=== PATIENT | male | born 1990 | race Caucasian/White ===

== ENCOUNTER 2022-06-13 13:40 | Emergency (ER) | payer MEDICAID ==
[~2022-06-13] VITALS: Ht 160 cm; Wt 58.0 kg
[2022-06-13 13:47] VITALS: BP 122/86
[2022-06-13] MEDS ORDERED: DEXAMETHASONE 4MG/ML 1ML VIAL IM ONE (15:45)
[2022-06-13] MEDS ORDERED: DIPH50CA41 MT (15:45)
[2022-06-13] MEDS ORDERED: MED4 MT (15:45)
[2022-06-13] MEDS ORDERED: CETI10CA2 MT (15:45)
[2022-06-13] MEDS ORDERED: DIPHENHYDRAMINE 50MG CAPSULE PO ONE (15:45)
[2022-06-13] MEDS ORDERED: DIPHENHYDRAMINE 25MG CAPSULE PO SCH (16:00)
== END 2022-06-13 16:13 | disposition home or self-care (01) ==
LOC: ER 13:40
DX: T78.40XA Allergy, unspecified, initial encounter (principal); X58.XXXA Exposure to other specified factors, initial encounter; L50.9 Urticaria, unspecified
CPT/HCPCS: 96372; 99283; J1100; Q0163; Z7610

== ENCOUNTER 2024-11-25 02:45 | Emergency (ER) | payer OTHER ==
[~2024-11-25] VITALS: Ht 162.6 cm; Wt 57.0 kg
[~2024-11-25 02:45] MED LIST: CETI10CA2 MT; DIPH50CA41 MT; METH4TAB95 MT
[2024-11-25 02:51] VITALS: O2SAT 100
[2024-11-25 02:54] VITALS: BP 110/79; PULSE 70; RESP 18; TEMP 36.8; O2SAT 99
[2024-11-25 03:28] LABS: CLARITY URINE CLEAR (CLEAR); COLOR URINE YELLOW (YELLOW); GLUCOSE URINE NEGATIVE (NEGATIVE); KETONES URINE NEGATIVE (NEGATIVE); LEUKOCYTE ESTERASE URINE NEGATIVE (NEGATIVE); NITRITE URINE NEGATIVE (NEGATIVE); OCCULT BLOOD URINE NEGATIVE (NEGATIVE); PH URINE 7.0 (4.5-8.0); PROTEIN URINE 1+ (NEGATIVE); SPECIFIC GRAVITY URINE 1.023 (1.005-1.030); UROBILINOGEN URINE 1.0 E.U./dL (0.2-1.0)
[2024-11-25 03:45] LABS: BASOPHILS % 0.5 % (0.0-2.0); EOSINOPHILS % 1.1 % (0.0-5.0); HEMATOCRIT. 42.7 % (42.0-52.0); HEMOGLOBIN. 14.3 g/dL (14.0-18.0); LYMPHOCYTES % 44.0 % (20.0-50.0); MEAN PLATELET VOLUME 8.5 fl (7.4-10.4); MONOCYTES % 11.2 % (2.0-8.0); NEUTROPHILS % 43.2 % (40.0-76.0); PLATELET 205 x1000/uL (130-400); RED BLOOD CELL COUNT 4.50 mill/uL (4.7-6.1); RED CELL DISTRIBUTION WIDTH 13.7 % (11.6-14.6)
[2024-11-25 03:59] LABS: CREATININE 0.9 mg/dL (0.6-1.3); TROPONIN I HIGH SENSITIVITY < 4 ng/L (3.0-53); UREA NITROGEN BLOOD 8 mg/dL (9-23)
[2024-11-25 04:10] VITALS: TEMP 98.3
[2024-11-25] MEDS: ACETAMINOPHEN 325MG TABLET PO ONE (04:10)
[2024-11-25] MEDS ORDERED: NAPR-1176 MT (04:33)
[2024-11-25 05:42] LABS: BACTERIA URINE NONE SEEN; RBC URINE 0-2 /hpf (0-2); SQUAMOUS EPITHELIAL CELL URINE FEW /lpf (RARE/1+); WBC URINE 0-2 /hpf (0-2)
== END 2024-11-25 04:47 | disposition home or self-care (01) ==
LOC: ER 03:04
DX: R07.89 Other chest pain (principal); Z79.1 Long term (current) use of non-steroidal anti-inflammatories (NSAID)
CPT/HCPCS: 36415; 71045; 80048; 81003; 84484; 85025; 93005; 99285